=== PATIENT | male | born 1955 | race Caucasian/White ===

== ENCOUNTER 2020-10-22 23:45 | Inpatient (IN) | payer SELFPAY ==
[~2020-10-22] VITALS: Ht 188 cm; Wt 58.3 kg
[2020-10-23] VITALS (22 sets, daily range): BP systolic 93–155; BP diastolic 42–88
[2020-10-23] MEDS: IV NORMAL SALINE 1000ML BAG 1,000 ML IV SCH ×3 (00:30→20:00)
[2020-10-23] MEDS ORDERED: NICOTINE 21MG PATCH. TD PRN (00:30)
--- NOTE | 2020-10-23 00:30 | NUR ---
Patient arrived to room 109 via gurney at 2345. Patient placed on ICU monitors, on 3LNC. Patient AOX3, cannot remember why he is in hospital. Splint to left ankle, patient says he sprained it 3 months ago. Admits to drinking 6pack of beer daily and smokes a pack and a half of cigarettes daily. Brother Janusz at bedside, assisted with admission questions, reports that patient has never seen a doctor, does not take medications, and has no medical history. Janusz is to be emergency family contact. Dr. Gonsalves called for admit orders, [facility] protocol added as well as neuro consult.
[2020-10-23] MEDS: THIAMINE INJ 100 MG in IV DEXTROSE 5% 50 ML IV SCH ×2 (00:48→08:34)
[2020-10-23 05:25] LABS: BASO % 0 % (0-3); EOS % 0 % (0-3); HEMATOCRIT 40.5 % (39.0-53.0); HEMOGLOBIN 14.3 g/dL (13.0-17.5); LYMPH # 0.3 x10^3/uL (1.0-4.8); LYMPH % 3 % (24-48); MEAN CORPUSCULAR HEMOGLOBIN 33 pg (25-35); MEAN CORPUSCULAR HGB CONC 35 g/dL (31-37); MEAN CORPUSCULAR VOLUME 95 fL (79-100); MONO # 0.9 x10^3/uL (0.0-1.1); MONO % 10 % (0-9); NEUT # 7.5 x10^3/uL (1.8-7.7); NEUT % 87 % (31-73); PLATELET COUNT 249 x10^3/uL (140-400); RED BLOOD COUNT 4.28 x10^6/uL (4.30-5.70); WHITE BLOOD COUNT 8.7 x10^3/uL (4.0-11.0)
[2020-10-23 05:34] LABS: ALBUMIN 3.3 g/dL (3.4-5.0); ALBUMIN/GLOBULIN RATIO 1.1 (1.0-1.7); CALCIUM 7.9 mg/dL (8.5-10.1); CREATININE 0.8 mg/dL (0.7-1.3); GFR 97.3; TOTAL BILIRUBIN 1.1 mg/dL (0.2-1.0); TOTAL PROTEIN 6.3 g/dL (6.4-8.2)
[2020-10-23 07:50] LABS: % LYMPHS 4 % (24-48); % MONOS 8 % (0-10); % SEGS 88 % (35-66); PLT ESTIMATE ADEQUATE (ADEQUATE)
[2020-10-23] MEDS ORDERED: chlordiazePOXIDE HCL 25 MG CAPSULE PO PRN ×2 (08:15)
[2020-10-23] MEDS ORDERED: HALOPERIDOL LACTATE 5 MG/ML VIAL. IVP PRN (08:15)
[2020-10-23] MEDS ORDERED: cloNIDine HCL 0.1 MG TABLET PO PRN (08:15)
[2020-10-23] MEDS ORDERED: MORPHINE SULFATE 4 MG/ML VIAL. IV PRN (08:15)
[2020-10-23] MEDS ORDERED: diphenhydrAMINE 50 MG/ML VIAL IVP PRN (08:15)
[2020-10-23] MEDS ORDERED: levETIRAcetam 500 MG in IV DEXTROSE 5% 100ML 100 ML IV SCH ×2 (09:00)
[2020-10-23] MEDS ORDERED: MULTIVIT INFUSN,ADULT 4,VIT K 10 ML, THIAMINE INJ 100 MG, FOLIC ACID INJ 1 MG in IV NOR... IV SCH (09:00)
[2020-10-23] MEDS ORDERED: THIAMINE INJ 100 MG, FOLIC ACID INJ 1 MG in IV NORMAL SALINE 1000ML BAG 1,000 ML IV SCH (09:00)
--- NOTE | 2020-10-23 09:27 | HP ---
ADMIT DATE: 10/22/2020 HISTORY OF PRESENT ILLNESS: The patient is a 65-year-old male patient who was brought to the Emergency Room of [facility] via EMS with report that they were called out to a home where this patient had a seizure and was in a postictal state. Prior to arrival, EMS paramedics reported the patient was at a home with his visitation when family members noticed him leaning over to the side from a sitting position and started shaking and what they called seizure-like activity, EMS staff did not witness any seizure activity; however, reported that he was in a postictal state upon their arrival. Per EMS staff, the patient has no known drug allergies, does not take any medications, has not seen a doctor for greater than 20-30 years, does not have any history of seizures, has a history of drinking daily and cigarette smoking. He was extensively investigated in the Emergency Room and has had lab work, which showed that his white cell count was slightly elevated. His sodium was low at 122. He has marked lactic acidosis of 10.5, his blood gases showed a pH of 7.21, pCO2 of 33, pO2 of 112, bicarbonate was 13 and oxygen saturation was 97%. His urinalysis and toxic screen showed only his blood alcohol level was high at 50, but all other drugs are negative, has had a CT scan of the head and cervical spine. The CT scan of the head showed tubular, mildly dense lesion that extends from the left vertex subarachnoid space near the region of the superior sagittal sinus and appears to perforate the left parietal lobe near the central sulcus extending to the periventricular white matter towards left atrium. 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 There is encephalomalacia of left occipital lobe, likely chronic ischemic infarct, no acute infarct, acute ischemic changes evident. No intracranial hemorrhage, mass, or hydrocephalus. Orbits, mastoid cells and bones are unremarkable. CT scan of the cervical spine showed craniocervical junction intact. Cervical vertebral body height and alignment are intact. There is mild motion artifact, throughout the examination, may decrease sensitivity to detect subtle abnormalities including tiny hairline fracture. The patient was treated with IV fluid in the form of normal saline, was given also a loading dose of Keppra after receiving initially two as he had another seizure while in the Emergency Room and received 2 mg of lorazepam and a consultation with Dr. ____ and the patient was transferred to [facility] for further evaluation and treatment, with new onset of seizures, lactic acidosis, probably due to seizure itself, hyponatremia, abnormal finding with the CT scan, the patient has also swelling and deformity of his left ankle joint and had x-rays done, which showed that there is deformity of the tibiotalar joint with talar tilt identified as well as irregularity of the articular surface of distal tibia and talus, degenerative changes are seen, widening of the medial ankle mortise as well as the medial aspect of the tibiotalar joint, which could be from ligamentous injury or subluxation. We will obviously consult the neurologist as well as the orthopedic surgeon. We will repeat all his lab work and continue with Carlotta. PAST MEDICAL HISTORY: Unremarkable. PAST SURGICAL HISTORY: Unremarkable. ALLERGIES: He has no known drug allergies. MEDICATIONS: He is not taking any medication [id number] or by prescription. FAMILY HISTORY: He has 3 brothers and 5 sisters. SOCIAL HISTORY: His had just recently. He has 1 son and 3 daughters. He smokes a pack and a half of cigarettes daily and drinks 12 packs of beer every day. 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 PHYSICAL EXAMINATION: GENERAL: On arrival to the Emergency Room, the patient was in a postictal state according to the ER physician. There was no pallor, jaundice, cyanosis or thyromegaly. No jugular venous distention. No lower limb edema. VITAL SIGNS: His heart rate was 106, blood pressure was 189/99, temperature was 98.7, respiratory rate was 22 and oxygen saturation was 96%. HEAD, EYES, EARS, NOSE AND THROAT: Normocephalic, atraumatic. NECK: Supple. HEART: Normal first and second heart sounds. No gallop or murmur. CHEST: Clear to auscultation. No crepitation or rhonchi. ABDOMEN: Distended, soft, nontender. NEUROLOGIC: He was initially alert and oriented to self only with normal motor function, sensory function with no focal deficit. EXTREMITIES: Examination of the lower extremities showed no cyanosis, clubbing or edema; however, he has left ankle swollen. No crepitus appreciated. Distal capillary refill is less than 2 seconds. Limited range of motion, but the dorsalis pedis pulses were easily palpable. LABORATORY DATA: He has had lab work done, which showed that his white cell count was 12,100, hemoglobin 15, hematocrit 44, MCV 98 and platelet count 335,000 with normal manual differential. His serum sodium was 122, potassium 4.3, chloride 84, bicarbonate 14, anion gap of 24, BUN of 6, creatinine 0.7, estimated GFR was 113 mL per minute. His glucose was 95, lactic acid was 10.5, calcium was 8.6, magnesium 2.6. Total bilirubin, AST, ALT, alkaline phosphatase were normal. CK was 256, his total protein was 7.6, albumin 4.2. Urinalysis was essentially unremarkable. Toxic screen was positive for blood alcohol level of 50 mg/dL; however, the toxic screen was negative for opiates, methadone, barbiturates, phencyclidine, amphetamine, methamphetamine, benzodiazepine, cocaine, cannabinoids. His chest x-ray showed fullness of the bilateral pulmonary hilum, mild coarsening of the lung markings bilaterally and mild interstitial prominence, a definite grossly displaced fracture is not seen. CT scan of the head and cervical spine showed there is a tubular mildly dense lesion, which extends from the left vertex subarachnoid space near the region of the superior sagittal sinus and appears to perforate the left parietal lobe near the central sulcus extending through the periventricular white matter towards the atrium. 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 There is encephalomalacia of left occipital lobe, likely due to chronic ischemic infarct, no acute infarct or acute ischemic changes evident. No intracranial hemorrhage, mass, or hydrocephalus. Orbits, mastoids and bones are unremarkable and the cervical spine also showed mild motion deranged exam, no acute osseous injury evident, cervical disk disease. ASSESSMENT AND PLAN: The patient was transferred to [facility] with new onset of seizures as apparently has what seemed to be tonic-clonic seizure in the home. He has also another one while at the Emergency Room. He did receive 1 gram of Keppra and was also given IV fluid and he was also found to have a marked lactic acidosis, hyponatremia, abnormal x-ray of his left lower extremity. Plan is to continue with Keppra, continue with IV fluid, repeat all his labs and consult the neurologist as well as orthopedic surgeon. SRIKANTH REDMOND MD DR: ESEQUIEL/drew JOB#: [id number] / [id number]
--- NOTE | 2020-10-23 09:50 | NUR ---
Dr Pennington called re: consult. Will see patient later but has already looked at xray and nothing appears acute; does have distorted ankle from old injury. Recommends just ice and splint (already on).
--- NOTE | 2020-10-23 12:55 | PDOC2 ---
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 His recently and he was at the wake yesterday when he had a seizure. He has a remote history of left ankle injury, he said about 5 or more years ago, and was unable to seek treatment at that time for financial reasons. He said he let it heal "naturally" but has had trouble with the ankle since then. It has been enlarged, occasionally slightly painful, and he occasionally uses some wrapping on it. It is never been back to normal. After the seizure yesterday there was some additional swelling and some ecchymosis at that ankle. I removed his splint today and he said it feels pretty good, already better than yesterday, but is still somewhat swollen and ecchymotic. He was in the ICU when I examined him but is awake, alert, and talkative. Past Medical History Past Medical History No significant history. Past Surgical History Past Surgical History: No pertinent history Family History Family History He has 3 brothers and 5 sisters. Social History Social History His had just recently. He has 1 son and 3 daughters. He smokes a pack and a half of cigarettes daily and drinks a 12 pack of beer every day. 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 1 pack per day ALCOHOL: heavy Lives: with Family Current Medications Current Medications Current Medications Multivitamins 10 ml/Thiamine HCl 100 mg/Folic Acid 1 mg/Sodium Chloride 1,011.2 ml @ 100 mls/ hr DAILY IV ; Start 10/23/20 at 09:00; Stop 10/27/20 at 19:07; Status UNV Thiamine HCl 100 mg/Dextrose 51 ml @ 100 mls/hr DAILY IV Last administered on 10/23/20at 08:34; Start 10/23/20 at 01:00 Lorazepam (Ativan Inj) 2 mg PRN Q1HR PRN IV For CIWA 8-14; Start 10/23/20 at 00:30; Status Cancel Lorazepam (Ativan Inj) 4 mg PRN Q1HR PRN IV For CIWA 15 or greater; Start 10/23/20 at 00:30; Status Cancel Sodium Chloride 1,000 ml @ 100 mls/hr Q10H IV Last administered on 10/23/20at 08:10; Start 10/23/20 at 00:30 Nicotine (Nicoderm Cq 21mg) 1 patch PRN DAILY PRN TD SMOKING CESSATION; Start 10/23/20 at 00:30 Thiamine HCl 100 mg/Folic Acid 1 mg/Sodium Chloride 1,001.2 ml @ 99.012 mls/hr DAILY IV Last administered on 10/23/20at 08:53; Start 10/23/20 at 09:00; Stop 10/27/20 at 19:07 Chlordiazepoxide (Librium) 50 mg PRN Q1HR PRN PO For CIWA 8-14; Start 10/23/20 at 08:15 Chlordiazepoxide (Librium) 100 mg PRN Q1HR PRN PO For CIWA 15 or greater; Start 10/23/20 at 08:15 Lorazepam (Ativan) 4 mg PRN Q1HR PRN PO For CIWA 8-14; Start 10/23/20 at 08:15 Lorazepam (Ativan) 8 mg PRN Q1HR PRN PO For CIWA 15 or greater; Start 10/23/20 at 08:15 Lorazepam (Ativan Inj) 2 mg PRN Q1HR PRN IV For CIWA 8-14; Start 10/23/20 at 08:15 Lorazepam (Ativan Inj) 4 mg PRN Q1HR PRN IV For CIWA 15 or greater; Start 10/23/20 at 08:15 Haloperidol Lactate (Haldol Inj) 5 mg PRN Q4HRS PRN IVP Hallucinatns,Confusn,Delirium; Start 10/23/20 at 08:15 Diphenhydramine HCl (Benadryl) 25 mg PRN Q15MIN PRN IVP EPS symptoms 2'Haldol admin; Start 10/23/20 at 08:15 Clonidine HCl (Catapres) 0.1 mg PRN Q1HR PRN PO SBP > 180 or DBP > 100, MRX3; Start 10/23/20 at 08:15 Lorazepam (Ativan Inj) 2 mg PRN Q15MIN PRN IV SEE COMMENTS; Start 10/23/20 at 08:15 Morphine Sulfate (Morphine Sulfate) 4 mg PRN Q4HRS PRN IV PAIN; Start 10/23/20 at 08:15 Levetiracetam 500 mg/Dextrose 105 ml @ 420 mls/hr Q12HR IV Last administered on 10/23/20at 08:33; Start 10/23/20 at 09:00 Levetiracetam 500 mg/Dextrose 105 ml @ 420 mls/hr Q12HR IV ; Start 10/23/20 at 09:00; Status UNV Allergies Allergies: Coded Allergies: No Known Drug Allergies (Unverified , 10/23/20) ROS General: No: Chills, Night Sweats PSYCHOLOGICAL ROS: No: Anxiety, Hallucinations Eyes: No Double vision, No Loss of vision Hematological and Lymphatic: No: Bleeding Problems Respiratory: No: Cough, Hemoptysis Cardiovascular: No Chest Pain, No Palpitations Gastrointestinal: No Nausea, No Vomiting Genitourinary: No Dysuria, No Hematuria Musculoskeletal: Yes Joint Pain, Yes Joint Swelling Neurological: Yes Gait Disturbance, Yes Seizures Skin: No Mole Changes Physical Exam General: Alert, Cooperative HEENT: Atraumatic Lungs: Normal air movement Heart: Regular rate Abdomen: Soft Extremities: Other (The emergency room splint was removed. Apparently the swelling is already improved significantly. There is gross enlargement of the a nkle which appears chronic and related to posttraumatic osteoarthritis. There is mild tenderness medially. No acute evidence of instability. No acute fracture or dislocation. He can move the forefoot and toes without difficulty and is moving the ankle joint with minimal pain and difficulty. The ankle joint does have decreased range of motion which I suspect is chronic related to posttraumatic osteoarthritis. There is some tenderness along the deltoid ligament and some ecchymosis medially but nothing severe. The lateral side is minimally tender. Light touch sensation and capillary refill are normal. There is an older appearing abrasion or superficial laceration with slight eschar on the anterolateral distal tibia about 10 cm above the ankle joint which appears unrelated and appears about 2 weeks old.) Skin: No breakdown, No significant lesion Neuro: Normal tone, Sensation intact Psych/Mental Status: Mental status NL, Mood NL Vitals VITALS Vital Signs Date Time Temp Pulse Resp B/P (MAP) Pulse Ox O2 Delivery O2 Flow Rate FiO2 10/23/20 12:00 Nasal Cannula 3.0 10/23/20 12:00 98.0 81 28 103/54 (70) 94 98.0 Labs Labs Laboratory Tests Test 10/23/20 04:49 White Blood Count 8.7 x10^3/uL (4.0-11.0) Red Blood Count 4.28 x10^6/uL (4.30-5.70) Hemoglobin 14.3 g/dL (13.0-17.5) Hematocrit 40.5 % (39.0-53.0) Mean Corpuscular Volume 95 fL (79-100) Mean Corpuscular Hemoglobin 33 pg (25-35) Mean Corpuscular Hemoglobin Concent 35 g/dL (31-37) Red Cell Distribution Width 15.0 % (11.5-14.5) Platelet Count 249 x10^3/uL (140-400) Neutrophils (%) (Auto) 87 % (31-73) Lymphocytes (%) (Auto) 3 % (24-48) Monocytes (%) (Auto) 10 % (0-9) Eosinophils (%) (Auto) 0 % (0-3) Basophils (%) (Auto) 0 % (0-3) Neutrophils # (Auto) 7.5 x10^3/uL (1.8-7.7) Lymphocytes # (Auto) 0.3 x10^3/uL (1.0-4.8) Monocytes # (Auto) 0.9 x10^3/uL (0.0-1.1) Eosinophils # (Auto) 0.0 x10^3/uL (0.0-0.7) Basophils # (Auto) 0.0 x10^3/uL (0.0-0.2) Segmented Neutrophils % 88 % (35-66) Lymphocytes % 4 % (24-48) Monocytes % 8 % (0-10) Platelet Estimate Adequate (ADEQUATE) Sodium Level 128 mmol/L (136-145) Potassium Level 4.0 mmol/L (3.5-5.1) Chloride Level 93 mmol/L (98-107) Carbon Dioxide Level 24 mmol/L (21-32) Anion Gap 11 (6-14) Blood Urea Nitrogen 8 mg/dL (8-26) Creatinine 0.8 mg/dL (0.7-1.3) Estimated GFR (Cockcroft-Gault) 97.3 BUN/Creatinine Ratio 10 (6-20) Glucose Level 95 mg/dL (70-99) Calcium Level 7.9 mg/dL (8.5-10.1) Total Bilirubin 1.1 mg/dL (0.2-1.0) Aspartate Amino Transf (AST/SGOT) 50 U/L (15-37) Alanine Aminotransferase (ALT/SGPT) 49 U/L (16-63) Alkaline Phosphatase 63 U/L (46-116) Total Protein 6.3 g/dL (6.4-8.2) Albumin 3.3 g/dL (3.4-5.0) Albumin/Globulin Ratio 1.1 (1.0-1.7) Laboratory Tests Test 10/23/20 04:49 White Blood Count 8.7 x10^3/uL (4.0-11.0) Red Blood Count 4.28 x10^6/uL (4.30-5.70) Hemoglobin 14.3 g/dL (13.0-17.5) Hematocrit 40.5 % (39.0-53.0) Mean Corpuscular Volume 95 fL (79-100) Mean Corpuscular Hemoglobin 33 pg (25-35) Mean Corpuscular Hemoglobin Concent 35 g/dL (31-37) Red Cell Distribution Width 15.0 % (11.5-14.5) Platelet Count 249 x10^3/uL (140-400) Neutrophils (%) (Auto) 87 % (31-73) Lymphocytes (%) (Auto) 3 % (24-48) Monocytes (%) (Auto) 10 % (0-9) Eosinophils (%) (Auto) 0 % (0-3) Basophils (%) (Auto) 0 % (0-3) Neutrophils # (Auto) 7.5 x10^3/uL (1.8-7.7) Lymphocytes # (Auto) 0.3 x10^3/uL (1.0-4.8) Monocytes # (Auto) 0.9 x10^3/uL (0.0-1.1) Eosinophils # (Auto) 0.0 x10^3/uL (0.0-0.7) Basophils # (Auto) 0.0 x10^3/uL (0.0-0.2) Segmented Neutrophils % 88 % (35-66) Lymphocytes % 4 % (24-48) Monocytes % 8 % (0-10) Platelet Estimate Adequate (ADEQUATE) Sodium Level 128 mmol/L (136-145) Potassium Level 4.0 mmol/L (3.5-5.1) Chloride Level 93 mmol/L (98-107) Carbon Dioxide Level 24 mmol/L (21-32) Anion Gap 11 (6-14) Blood Urea Nitrogen 8 mg/dL (8-26) Creatinine 0.8 mg/dL (0.7-1.3) Estimated GFR (Cockcroft-Gault) 97.3 BUN/Creatinine Ratio 10 (6-20) Glucose Level 95 mg/dL (70-99) Calcium Level 7.9 mg/dL (8.5-10.1) Total Bilirubin 1.1 mg/dL (0.2-1.0) Aspartate Amino Transf (AST/SGOT) 50 U/L (15-37) Alanine Aminotransferase (ALT/SGPT) 49 U/L (16-63) Alkaline Phosphatase 63 U/L (46-116) Total Protein 6.3 g/dL (6.4-8.2) Albumin 3.3 g/dL (3.4-5.0) Albumin/Globulin Ratio 1.1 (1.0-1.7) Images Images Report reviewed and images independently reviewed. The primary finding is posttraumatic osteoarthritis, with a distal tibial articular surface malunion, and angulation of much of the distal tibial plafond of 45 degrees from its usual position. These are chronic findings with [id number] changes, joint space narrowing, sclerosis and osteophyte formation. There is some widening of the medial clear space but I believe this is also chronic because the talus and tibia have kissing sclerotic lesions at the tibiotalar joint. The 45 degree malangulation of the joint would predispose to sprains and inflammation, and an arthritic ankle is likely to be swollen and painful at times. [address] [address] IMAGING REPORT Signed PATIENT: BEAR VIVAR ACCOUNT: [id number] : 1955 LOCATION: ER AGE: 65 SEX: M EXAM STATUS: REG ER ORD. PHYSICIAN: RIGOBERTO SHAVER APRN REASON: SWELLING/DEFORMITY PROCEDURE: ANKLE LEFT 3V INDICATION: Reason: SWELLING/DEFORMITY / Spl. Instructions: / History: COMPARISON: None. IMPRESSION: Left ankle: 3 views obtained. Large amount of soft tissue swelling is seen. There is a deformity of the tibiotalar joint with talar tilt identified as well as irregularity of the articular surface of the distal tibia and talus. Degenerative changes are seen. Widening of the medial ankle mortise as well as the medial aspect of the tibiotalar joint which could be from ligamentous injury and subluxation. There is no comparison available for review to assess whether this is a chronic finding or acute in nature from acute injury. Osseous demineralization. Tibiotalar joint effusion. Degenerative changes of the midfoot. Degenerative changes with erosions at the subtalar joint as well. Electronically signed by: Prakash Funk MD (10/22/2020 7:24 PM) DESKTOP- [id number] DICTATED AND SIGNED BY: PRAKASH FUNK MD DATE: 10/22/201920 CC: RIGOBERTO SHAVER APRN; PCP,NO Assessment/Plan Assessment/Plan Post-traumatic osteoarthritis, left ankle and foot M19.172 Sprain of deltoid ligament of left ankle, initial encounter S93.422A He has a remote ankle fracture which now has posttraumatic osteoarthritis. This ankle be prone to ankle sprains. I believe the current injury is a sprain, and the swelling is improving. I will prescribe a CAM walker, and he may weight- bear as tolerated in the CAM walker. Office follow up in 2-3 weeks. ABDELRAHMAN WORRELL MD Oct 23, 2020 12:55
--- NOTE | 2020-10-23 14:44 | RAD ---
Left rib series INDICATION: Severe pain in the left side of the chest. COMPARISON: Portable chest x-ray of 10/22/2020 FINDINGS: 4 views of the left ribs were obtained and show no acute fracture or aggressive appearing bony lesion s. No pneumothorax or pleural effusion is seen either. Soft tissues in the left chest wall are unrema rkable as well. IMPRESSION: Negative left rib series. No fracture or aggressive osseous lesions are seen. Electronically signed by: Courtney Myrick MD (10/23/2020 2:42 PM) [facility] [place]
--- NOTE | 2020-10-23 15:54 | NUR ---
CAM boot applied to left lower extremity. Patient transferred from bed to wheel chair x2 assist. Going to MRI then to 6th floor for transfer of care. Report called to RN on 6th floor.
[2020-10-23] MEDS ORDERED: GADOTERATE 7.5 MMOL/15ML VIAL. IVP ONE (16:45)
--- NOTE | 2020-10-23 17:49 | RAD ---
Exam: MRI brain without and with contrast INDICATION: CT head without contrast 10/22/2020 TECHNIQUE: Multiplanar multisequence MRI of the brain was obtained before and after the administratio n of 50 mL of Clariscan IV contrast Comparisons: 10/22/2020 FINDINGS: Evaluation is limited secondary to patient motion. No abnormal area of increased signal on DWI sequence to suggest restricted diffusion. Visualized port ions of the vascular flow voids are unremarkable. T2/FLAIR hyperintense signal the periventricular white matter favored represent chronic small vessel schema change. Chronic infarct/encephalomalacia in the medial left occipital lobe is noted. No focal parenchymal lesion or hemorrhage is identified. No midline shift or sulcal effacement. There is a draining vein noted in the posterior right parietal lobe corresponding to the tubular dens ities seen on recent CT. No other abnormal areas of enhancement are identified. Ventricular system is within normal limits without compression or hydrocephalus. Basal cisterns are w ell maintained. Globes intradural contents are normal. Visualized portions of paranasal sinuses and mastoid air cells are well-pneumatized. Craniocervical junction is normal. Midline structures are within normal limits. IMPRESSION: 1. Evaluation mildly limited secondary to patient motion. 2. Abnormality noted on recent CT correlates to a developmental venous anomaly. 3. No evidence for acute ischemia. 4. Chronic infarct at the medial left occipital lobe. 5. T2/FLAIR hyperintense signal the periventricular white matter favored represent chronic small ves tonya ischemic change. Electronically signed by: Warner Gusman MD (10/23/2020 5:47 PM) [facility]
[2020-10-23] MEDS: levETIRAcetam 500 MG TABLET PO SCH (19:59)
--- NOTE | 2020-10-23 20:53 | CONS ---
DATE OF CONSULTATION: 10/23/2020 REFERRING PHYSICIAN: Puja Gonsalves MD REASON FOR CONSULTATION: New onset seizure and alcohol withdrawal. HISTORY OF PRESENT ILLNESS: The patient is a 65-year-old alcoholic that was at his 's wake last evening. He began to have difficulty with speech and then had an episode of shaking, which was concerning for seizure. EMS was summoned and he was taken to [facility] Emergency Room. He had another seizure in the Emergency Room, which was witnessed and generalized tonic-clonic. He was given intravenous Ativan and stopped seizing, but did not wake up. CT scan of the head was performed, which did not reveal hemorrhage, but did reveal an abnormality in the left hemisphere, which could be a vascular malformation or other lesion. He also had an area of encephalomalacia. There was no acute hemorrhage or an acute stroke seen. He was transferred to [facility] where he remains in the Intensive Care Unit. He was able to awaken on the morning of 10/23/2020. He normally does drink at least 12 beers a day. He smokes 1-1/2 packs of cigarettes a day. He has not been to a doctor for 20-30 years. In his room was his brother who is not entirely familiar with his health care. PAST MEDICAL HISTORY: Unavailable as the patient really has not sought out any medical care for a good part of his life. ALLERGIES: No known allergies to drugs. MEDICATIONS PRIOR TO ADMISSION: None. FAMILY HISTORY: He has 3 brothers and 5 sisters. SOCIAL HISTORY: His recently . He was at her wake. The is the day of this consultation. He has one son and three daughters. He smokes 1-1/2 pack of cigarettes a day and drinks 12 beers daily. He is a semiretired duong. He denies recreational drugs. REVIEW OF SYSTEMS: He does not complain of any headache. He has had no change of vision. He notices maybe some diminished hearing on the left. He has been able to chew and swallow, but has very poor dentition. He has had a cough. He does not have shortness of breath, chest or abdominal pain. He does have back pain where he thinks he may have broken some ribs. He has severe back pain where it feels like somebody hit him with a baseball bat. He does not complain of any gastrointestinal or genitourinary complaints. He feels weak in his legs. He has had pain of his left ankle for quite some time. He denies of any psychiatric concerns. He does not complain of excessive bruising or bleeding. He does not have swelling. PHYSICAL EXAMINATION: VITAL SIGNS: The blood pressure was 125/74, pulse 86, respirations 26, temperature 98 degrees Fahrenheit axillary. Oximetry was 96% on 3 liters nasal cannula. His weight was 58.3 kilograms, height 74 inches with a calculated body mass index of 16.5. GENERAL: He was alert, awake and cooperative. Speech was fluent and fairly clear with a hint of dysarthria. He seemed to have some slightly disinhibited behaviors. He would have a tendency to ramble on with his speech and has difficulty staying focused for the exam or listening to others. He was oriented. He does admit to being slightly confused and that he thought he had gone home after the wake before coming to the hospital, which was not the case. NEUROLOGIC: Examination of the cranial nerves revealed visual delvalle were full to confrontation. Extraocular movements were intact. The eyes were conjugate. Pursuit movements were smooth and saccadic eye movements were without dysmetria. Facial sensation was intact. The muscles of mastication and facial expression were powerful symmetrically. Hearing was intact to finger rub. The palate arched symmetrically and the tongue was midline with full range of motion. Sternocleidomastoid and trapezius were powerful. Muscle bulk and tone was normal. There was no arm drift or abnormal movement. There was no leg drift. He had a hint of asterixis in the arms. Power was fairly full in the upper extremities. He seemed to have generalized weakness in the legs, but some of this may have been limited by his back pain. He had a splint on his left leg, which limited testing of the foot or ankle. Reflexes were 1/4 in the upper and lower extremities, but absent at the ankles. Toes were not upgoing. Coordination testing with [id number], fine motor and rapid alternating movements was fair. Sensory exam was intact to pain, light touch, proprioception, graphesthesia, cold thermal and vibration except for sensory shading in the legs. Sharp and cold thermal were better perceived just below the knee. Gait was not testable. NECK: Auscultation of the carotid artery did not reveal a bruit. HEART: Rhythm was regular without a murmur. EXTREMITIES: Peripheral pulses were present at the wrists 2/4. There was no edema or cyanosis. LABORATORY RESULTS: CBC revealed a normal white blood cell count, hemoglobin, hematocrit and platelet count. Chemistries were performed on 10/23/2020. Sodium was low to 128. Potassium was normal, but chloride was low at 93 and CO2 was normal. BUN and creatinine were normal with GFR calculating at 97.3. Glucose was normal at 95. Calcium was low at 7.9 and albumin low at 3.3 and total protein low at 6.3. Total bilirubin was elevated at 1.1 with SGOT at 15, SGPT at 49. Alkaline phosphatase was 63. DIAGNOSTIC RESULTS: CT scan of the brain was performed without contrast at [facility]. I reviewed the images. This did reveal a tubular structure in the left hemisphere in the parietal lobe that seemed to go from the surface down deeper. The etiology was unclear, but the radiologist felt it could be a developmental venous anomaly. There was also an area of encephalomalacia, but there was no area to suggest acute stroke or hemorrhage. IMPRESSION: Jaylan is a 65-year-old man who smokes 1-1/2 packs of cigarettes per day and drinks a 12-pack of beer per day. He has had 2 seizures. He does not have a history of seizure. His alcohol level was elevated at 50, but I do not know what his usual alcohol level runs. It is not clear that it was an alcohol withdrawal event. He states that he had not slow down his drinking. It is possible he does have an irritable focus due to some scar tissue in the area of encephalomalacia or the venous anomaly if in fact that is what it is. I did advise Emergency Room to load him with a gram of Keppra, which they did. We have resumed Keppra 500 mg twice a day here at the [facility]. He came in unresponsive, but now is fully responsive and suggesting that he is going to leave against medical advice because he wants to go to the remainder of his 's . RECOMMENDATIONS: I have ordered an MRI of his brain with and without contrast to determine if there is underlying tumor contributing to his seizure. We will switch Keppra from intravenous to oral since he is awake and able to eat. He is undergoing treatment for alcohol withdrawal. I appreciate being involved in his care. DAVID CONTI MD DR: MIRNA/drew JOB#: [id number] / [id number] Dr. NYLA Elizabeth AHMED MD
[2020-10-24 03:00] VITALS: BP 143/71
[2020-10-24 04:30] LABS: HEMATOCRIT 39.1 % (39.0-53.0); HEMOGLOBIN 13.5 g/dL (13.0-17.5); RED BLOOD COUNT 4.05 x10^6/uL (4.30-5.70); RED CELL DISTRIBUTION WIDTH 14.9 % (11.5-14.5); WHITE BLOOD COUNT 6.7 x10^3/uL (4.0-11.0)
[2020-10-24 04:56] LABS: ALBUMIN 2.9 g/dL (3.4-5.0); CREATININE 0.8 mg/dL (0.7-1.3); GFR 97.3; POTASSIUM 3.5 mmol/L (3.5-5.1); TOTAL BILIRUBIN 0.8 mg/dL (0.2-1.0); TOTAL PROTEIN 5.7 g/dL (6.4-8.2)
[2020-10-24] MEDS: IV NORMAL SALINE 1000ML BAG 1,000 ML IV SCH (06:15)
[2020-10-24 07:00] VITALS: BP 184/80
[2020-10-24] MEDS: levETIRAcetam 500 MG TABLET PO SCH (08:36)
[2020-10-24] MEDS: THIAMINE INJ 100 MG in IV DEXTROSE 5% 50 ML IV SCH (09:04)
[2020-10-24] MEDS ORDERED: LEVE500T56 PO (10:50)
[2020-10-24 11:00] VITALS: BP 128/69
--- NOTE | 2020-10-24 11:20 | NUR ---
This RN took off telemonitor and IVs out. Discharge education given. Patient escorted out via wheelchair to private vehicle with son and Tamiko AVILA.
--- NOTE | 2020-10-24 11:24 | DS ---
DATE OF DISCHARGE: 10/24/2020 HOSPITAL COURSE: The patient was admitted yesterday with a new onset of seizure, which was initially evaluated at the Emergency Room of [facility] and was transferred to [facility] ICU. He was found also to have hyponatremia and lactic acidosis that have all resolved. He was seen in consultation by Dr. Mckeon. CT scan shows no abnormality and he ordered an MRI and was also seen by Dr. Pennington. 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 There is no evidence for acute ischemia. 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 Dr. Pennington has recommended Cam boot. The patient was insisting he wants to go home and therefore, the patient was discharged home to continue on Keppra 500 mg twice a day. We have counseled him about alcohol that he should arrange for a followup with her primary care physician. PHYSICAL EXAMINATION: GENERAL: When I saw him, he looked well and was clearly in no apparent respiratory distress. No pallor, jaundice, cyanosis or thyromegaly. No jugular venous distention. No lower limb edema. VITAL SIGNS: Her heart rate was 72, blood pressure was 184/80, temperature was 98.2, respiratory rate was 18 and oxygen saturation was 95%. HEAD, EYES, EARS, NOSE AND THROAT: Showed normocephalic, atraumatic. NECK: Supple. HEART: Showed normal first and second heart sounds. No gallop, rub or murmur. CHEST: Clear to auscultation. No crepitation or rhonchi. ABDOMEN: Scaphoid, soft, nontender. NEUROLOGIC: He was awake, alert, responding appropriately. All cranial nerves are intact. He moves extremities without difficulty. Has Cam boot on his left lower extremity. LABORATORY DATA: This morning showed a white cell count of 6700; hemoglobin 13.5; hematocrit 39; MCV 97; and platelet count 206,000. Serum sodium 134, potassium 3.5, chloride 101, bicarbonate 25, anion gap of 8, BUN 5, creatinine 0.8. Estimated GFR was 97 mL per minute. His glucose was 95, calcium was 8. Total bilirubin, AST, ALT, alkaline phosphatase were normal. Total protein 5.7, albumin was 2.9. DISCHARGE MEDICATIONS: The patient was discharged home on Keppra 500 mg twice a day. FINAL DISCHARGE DIAGNOSES: 1. New onset seizure. 2. 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 He has also chronic small ischemic changes in the periventricular area. Hyponatremia has resolved. His serum sodium has risen from 118-134. The patient was advised to quit drinking alcohol and that he should arrange to have a primary care physician and to follow him. SRIKANTH REDMOND MD DR: ESEQUIEL/drew JOB#: [id number] / [id number]
== END 2020-10-24 11:20 | disposition home or self-care (01) | DRG 100 ==
LOC: 1 WEST ICU 23:45 → 6 SOUTH 10-23 17:45
PROVIDERS: ADMIT Internal Medicine; ATTEND Internal Medicine
DX: R56.9 Unspecified convulsions (principal); Q28.3 Other malformations of cerebral vessels; E87.1 Hypo-osmolality and hyponatremia; E87.2 Acidosis; F10.239 Alcohol dependence with withdrawal, unspecified; F17.200 Nicotine dependence, unspecified, uncomplicated; G93.89 Other specified disorders of brain; M19.172 Post-traumatic osteoarthritis, left ankle and foot; S93.422A Sprain of deltoid ligament of left ankle, initial encounter; Y90.2 Blood alcohol level of 40-59 mg/100 ml; Z79.899 Other long term (current) drug therapy; X58.XXXA Exposure to other specified factors, initial encounter; Y93.89 Activity, other specified; Y92.89 Other specified places as the place of occurrence of the external cause; Y99.8 Other external cause status
CPT/HCPCS: 36415; 70553; 71100; 80053; 83605; 85007; 85025; 85027; A9575; J1953; J3411; J3490; J7030; J7060; G0378